=== PATIENT | male | born 1995 | race Caucasian/White ===

== ENCOUNTER 2017-01-03 18:01 | Emergency (ER) | payer OTHER ==
--- NOTE | 2017-01-03 19:23 | ER Document Report ---
ED General - General Chief Complaint: Diarrhea Stated Complaint: WEAKNESS Time Seen by Provider: 01/03/17 19:14 Mode of Arrival: Ambulatory Information source: Patient Notes: Patient states that approximately 3-4 days ago he had cough cold congestion and some fevers. He states over the last 2-3 days he has had diarrhea that has been watery. He had one episode of vomiting. He has had some diffuse abdominal cramping. No problems with urination. No significant chronic medical problems or surgeries. The pain is been moderate. It is crampy in nature. It is across the upper abdomen and does not radiate. Nothing significant makes it better or worse. TRAVEL OUTSIDE OF THE [place] IN LAST 30 DAYS: No - Related Data Allergies/Adverse Reactions: No Known Allergies Allergy (Verified 01/03/17 18:07) Past Medical History - General Information source: Patient - Social History Smoking Status: Never Smoker Chew tobacco use (# tins/day): No Frequency of alcohol use: Rare Drug Abuse: None Family History: Reviewed & Not Pertinent Patient has suicidal ideation: No Patient has homicidal ideation: No Renal/ Medical History: Denies: Hx Peritoneal Dialysis Review of Systems - Review of Systems Constitutional: denies: Chills, Fever Cardiovascular: denies: Chest pain, Palpitations Respiratory: denies: Cough, Short of breath -: Yes All other systems reviewed and negative Physical Exam - Vital signs Vitals: Temp Pulse Resp BP Pulse Ox 98.5 F 76 18 125/56 L 96 01/03/17 18:07 01/03/17 18:07 01/03/17 18:07 01/03/17 18:07 01/03/17 18:07 Interpretation: Hypertensive - General General appearance: Appears well, Alert - HEENT Head: Normocephalic, Atraumatic Eyes: Normal Pupils: PERRL - Respiratory Respiratory status: No respiratory distress Chest status: Nontender Breath sounds: Normal Chest palpation: Normal - Cardiovascular Rhythm: Regular Heart sounds: Normal auscultation Murmur: No - Abdominal Inspection: Normal Distension: No distension Bowel sounds: Normal Tenderness: Tender, Other - Patient has a very mild diffuse tenderness to palpation of the abdomen. There is no rebound no guarding. Specifically the right lower quadrant has no tenderness. Organomegaly: No organomegaly - Back Back: Normal, Nontender - Extremities General upper extremity: Normal inspection, Nontender, Normal color, Normal ROM , Normal temperature General lower extremity: Normal inspection, Nontender, Normal color, Normal ROM , Normal temperature, Normal weight bearing. No: Vanessa's sign - Neurological Neuro grossly intact: Yes Cognition: Normal Orientation: AAOx4 Jhon Coma Scale Eye Opening: Spontaneous Jhon Coma Scale Verbal: Oriented [place] Coma Scale Motor: Obeys Commands [place] Coma Scale Total: 15 Speech: Normal Motor strength normal: LUE, RUE, LLE, RLE Sensory: Normal - Psychological Associated symptoms: Normal affect, Normal mood - Skin Skin Temperature: Warm Skin Moisture: Dry Skin Color: Normal Course - Re-evaluation Re-evalutation: 01/03/17 19:16 Patient symptoms being to be consistent with a viral infection. Patient is not currently febrile. His vital signs are stable. He has no history of bloody stool. His abdominal exam does not show any surgical abdominal signs. At this time I have suggested to the patient that we treat him symptomatically with Zofran and Imodium and that he gradually started to increase his diet. - Vital Signs Vital signs: Temp Pulse Resp BP Pulse Ox 98.5 F 76 18 125/56 L 96 01/03/17 18:07 01/03/17 18:07 01/03/17 18:07 01/03/17 18:07 01/03/17 18:07 Discharge - Discharge Clinical Impression: Gastroenteritis Condition: Stable Disposition: HOME, SELF-CARE Instructions: Gastroenteritis (adult) ([facility]), Antinausea Medication ([facility]), OTC Antidiarrhea Medication ([facility]) Additional Instructions: Your blood pressure is mildly elevated today. Please have this rechecked within 1 week by your doctor. Prescriptions: Loperamide HCl [Imodium 2 mg Capsule] 2 mg PO Q4HP PRN #21 cap PRN Reason: Ondansetron [Zofran Odt 4 mg Tablet] 1 - 2 tab PO Q4H PRN #15 tab.rapdis PRN Reason: For Nausea/Vomiting Forms: Elevated Blood Pressure Referrals: MICHAEL GOLDEN MD [[facility]] - Follow up in 3-5 days
[2017-01-03 20:14] VITALS: BP 109/69
== END 2017-01-03 20:54 | disposition home or self-care (01) ==
LOC: ER 18:01
DX: K52.9 Noninfective gastroenteritis and colitis, unspecified (principal); R11.10 Vomiting, unspecified; R10.84 Generalized abdominal pain
CPT/HCPCS: 99284

== ENCOUNTER 2018-11-14 01:28 | Emergency (ER) | payer OTHER ==
--- NOTE | 2018-11-14 03:16 | ER Document Report ---
ED General - General Chief Complaint: Productive Cough Stated Complaint: COUGHING BLOOD Time Seen by Provider: 11/14/18 02:59 TRAVEL OUTSIDE OF THE [place] IN LAST 30 DAYS: No - HPI Notes: 23-year-old male presents with hemoptysis. Otherwise healthy male, states for the last week he has had cough some moderate congestion. Over the last 2 days he developed some small amount of blood in his sputum with coughing. The use of anticoagulants, no history of coagulopathy. No recent travel outside the country, no unplanned weight loss. No history of incarceration. No history of TB. No alcohol or drug abuse. Mild intensity, gradual onset, nonradiating. No other modifying factors, no other associated symptoms, no other provocative or palliative factors. - Related Data Allergies/Adverse Reactions: No Known Allergies Allergy (Verified 01/03/17 18:07) Past Medical History - Social History Smoking Status: Never Smoker Chew tobacco use (# tins/day): Yes Frequency of alcohol use: Occasional Drug Abuse: None Family History: Reviewed & Not Pertinent Patient has suicidal ideation: No Patient has homicidal ideation: No - Medical History Medical History: Negative Renal/ Medical History: Denies: Hx Peritoneal Dialysis Review of Systems - Review of Systems Notes: Review of systems as in the history of present illness, otherwise negative x 10 systems. Physical Exam - Vital signs Vitals: Temp Pulse Resp BP Pulse Ox 98.0 F 75 22 H 121/51 L 95 11/14/18 01:33 11/14/18 01:33 11/14/18 01:33 11/14/18 01:33 11/14/18 01:33 - Notes Notes: General: Well developed . HEENT: Normocephalic, atraumatic. Pupils equal round reactive to light. No JVD. Chest: No trauma. Respiratory: Good air exchange, normal excursion. Cardiac: Regular rhythm. No murmurs or gallops. Abdomen: Soft, benign. Nondistended. Nontender. Back: No asymmetry or gross abnormality. Motor: Grossly normal power and tone. Neurologic: Alert, nonfocal. Cranial nerves II-12 are intact. Sensation intact. Vascular: Well perfused. Normal peripheral pulses. Skin: No petechiae or purpura. Course - Re-evaluation Re-evalutation: 11/14/18 03:14 Well-appearing male with likely bronchitis, likely viral, associated mild hemoptysis. Given age and comorbid's, doubt malignancy. Doubt TB. Doubt AVM or vascular emergency. Plain films are obtained, no evidence of mass or pneumonia. Patient understands a critical importance of close outpatient follow-up to assure there is no more insidious cause. - Vital Signs Vital signs: Temp Pulse Resp BP Pulse Ox 98.0 F 75 22 H 121/51 L 95 11/14/18 01:11/14/18 01:11/14/18 01:11/14/18 01:11/14/18 01:33 Discharge - Discharge Clinical Impression: Bronchitis, Hemoptysis Condition: Good Disposition: HOME, SELF-CARE Instructions: Bronchitis ([facility]), Hemoptysis ([facility]) Additional Instructions: See your primary care doctor within the next 24 to 48 hours
[2018-11-14 03:24] VITALS: BP 114/64
--- NOTE | 2018-11-14 03:44 | RADIOLOGY REPORT (SQ) ---
XR CHEST 2 VIEWS EXAM DATE: 11/14/2018 12:00 AM CDT HISTORY: Productive cough. COMPARISON: None. FINDINGS: The heart size is within normal limits. No consolidation, pleural effusion, or pneumothorax is seen. The bony thorax is intact. IMPRESSION: No evidence of acute cardiopulmonary disease.
[2018-11-14] MEDS ORDERED: LORAZEPAM INJ 2 MG/1 ML VIAL ONE ×4 (04:16→04:58)
== END 2018-11-14 03:22 | disposition home or self-care (01) ==
LOC: ER 01:28
DX: R04.2 Hemoptysis (principal); J40 Bronchitis, not specified as acute or chronic
CPT/HCPCS: 71046; 99283